=== PATIENT | female | born 1945 | race Caucasian/White ===

== ENCOUNTER 2020-02-03 12:07 | Observation (INO) | payer MEDICARE, OTHER ==
[~2020-02-03] VITALS: Ht 170.2 cm; Wt 53.1 kg
[~2020-02-03 12:07] MED LIST: B-12500 MCG PO; BIOTIN2500 MCG PO; CALCITRATE200 MG PO; CALTRATE-600 W1 EAC1 PO; CELEXA40 MG PO; CRESTOR10 MG PO; CURAMED PO; LEXAPRO10 MG PO; NEXIUM40 M1 PO; TRAMADOL HCL100 MG PO
--- OUTSIDE RECORDS SUMMARY | 2020-02-03 15:26 | XMS REPORT | Continuity of Care Document ---
Author Author Michael Myndnet MARNIE Erazo [employer] Address Unknown Phone Unavailable Care Team [facility]iders [facility] Associate Name Role Phone [employer] Unavailable Un available Problems Problem Status Onset Date Classification Date Reported Comments Source XRAY Active 03/09/2019 [facility] DX: MALIGNANT NEOPLASM OF ANUS, UNSPECIF Active 03/04/2019 [facility] UNK Active 0 04/03/2018 [facility] C20 - MALIGNANT NEOPLASM OF RECTUM Active 03/31/2018 [facility] 174.5; BREAST CANCER OF LOWER-OUTER QUAD Active 07/23/2014 [facility] POST RADIATION TREATMENT/174.5=BREAST CA Active 01/22/2014 [facility] 611.72=BREAST LUMP IN FEMALE A ctive 06/25/2013 [facility] Backache (finding) Active Problem 03/19/2019 [facility] Cigarette smoker (finding) Act elisa Problem [facility] Depressive disorder (disorder) Active Problem [facility] Malignant tumor of lung (disorder) Active Problem Right [facility] 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 03/19/2019 [facility] Pulmonary emphysema (disorder) Active Problem [facility] MALIGNANT NEOPLASM OF ANUS, UNSPECIFIED Active [facility] Medications Medication Details Route Status Patient Instructions Ordering Provider Order Date Source Oxycodone Hydrochloride 5 MG Oral Tablet 5 mg, 1 tab, Route: PO, ONCE, Dosing Weight 60.682, kg, PRN Pain Score 4-6, Start date: 04/11/18 10:10:00 CDT Inactive 04/11/2018 [facility] Fentanyl 50 microgram, Route: IVP, Q5Min, Dosing Weight 60.682, kg, PRN Pain Score 7-10, Priority: Routine, Start date: 04/11/18 9:15:00 CDT, Duration: 2 doses or times, Stop date: Limited # of times Inactive 04/11/2018 [facility] Flumazenil 0.2 mg, Route: IVP, PRN, Dosing Weight 60.682, kg, PRN Benzodiazepine Reversal, Initial dose, Start date: 04/11/18 9:15:00 CDT, Duration: 30 day, Stop date: 05/11/18 9:14:00 CDT Inactive 04/11/2018 [facility] Acetaminophen 1,000 mg, Route: IV, ONCE, Dosing Weight 60.682, kg, PRN Pain Score 1-3, Start date: 04/11/18 9:15:00 CDT Inactive 04/11/2018 [facility] esmolol 10 mg, Route: IVP, Q5M in, Dosing Weight 60.682, kg, PRN Other -See Comment, Start date: 04/11/18 9:15:00 CDT, Duration: 5 doses or times, Stop date: Limited # of times Inactive 04/11/2018 [facility] Labetalol 10 mg, Route: IVP, Q 5Min, Dosing Weight 60.682, kg, PRN Elevated BP, Start date: 04/11/18 9:15:00 CDT, Duration: 5 doses or times, Stop date: Limited # of times Inactive 04/11/2018 [facility] Hydralazine 10 mg, Route: IVP, Q20Min, Dosing Weight 60.682, kg, PRN Elevated BP, Start date: 04/11/18 9:15:00 CDT, Duration: 2 doses or times, Stop date: Limited # of times Inactive 04/11/2018 [facility] Promethazine 6.25 mg, Route: I VPB, ONCE, Dosing Weight 60.682, kg, PRN Nausea & Vomiting, Start date: 04/11/18 9:15:00 CDT Inactive 04/11/2018 [facility] Ondansetron 4 mg, Route: IVP, ONCE, Dosing Weight 60.682, kg, PRN Nausea & Vomiting, Start date: 04/11/18 9:15:00 CDT Inactive 04/11/2018 [facility] Meperidine 12.5 mg, Route: IVP , Q30Min, Dosing Weight 60.682, kg, PRN Other -See Comment, For shivering, Start date: 04/11/18 9:15:00 CDT, Duration: 2 doses or times, Stop date: Limited # of times Inactive 04/11/2018 [facility] Naloxone 0.4 mg, Route: IVP, Q 2MIN, Dosing Weight 60.682, kg, PRN Narcotic Reversal, Start date: 04/11/18 9:15:00 CDT, Duration: 8 doses or times, Stop date: Limited # of times Inactive 04/11/2018 [facility] Calcium Chloride 0.0014 MEQ/ML / Potassi um Chloride 0.004 MEQ/ML / Sodium Chloride 0.103 MEQ/ML / Sodium Lactate 0.028 MEQ/ML Injectable Solution 1,000 mL, Rate: 125 ml/hr, Infuse over: 8 hr, Route: IV, Dosing Weight 60.682 kg, Total Volume: 1,000, Start date: 04/11/18 9:15:00 CDT, Duration: 30 day, Stop date: 05/11/18 9:14:00 CDT, 1.7, m2 Inactive 04/11/2018 [facility] Acetaminophen 300 MG / Codeine Phosphate 30 MG Oral Tablet [Tylenol with Codeine #3] 1 - 2 tab, PO, Q4H, PRN Pain, X 3 day, # 20 tab, 0 Refill(s) Active 04/11/2018 [facility] lidocaine (ANES) Route: IV, Dr ug form: INJ, ONCE, Stop date: 04/11/18 8:56:00 CDT Inactive 04/11/2018 [facility] propofol (ANES) Route: IV, Agapito g form: INJ, ONCE, Stop date: 04/11/18 8:56:00 CDT Inactive 04/11/2018 [facility] fentaNYL (ANES) Route: IV, Agapito g form: INJ, ONCE, Stop date: 04/11/18 8:56:00 CDT Inactive 04/11/2018 [facility] ePHEDrine (ANES) Route: IV, Dr ug form: INJ, ONCE, Stop date: 04/11/18 8:56:00 CDT Inactive 04/11/2018 [facility] famotidine (ANES) Route: IV, D rug form: INJ, ONCE, Stop date: 04/11/18 8:56:00 CDT Inactive 04/11/2018 [facility] dexamethasone (ANES) Route: IV , Drug form: INJ, ONCE, Stop date: 04/11/18 8:56:00 CDT Inactive 04/11/2018 [facility] midazolam (ANES) Route: IV, Dr lance form: SOLN, ONCE, Stop date: 04/11/18 8:51:00 CDT Inactive 04/11/2018 [facility] Albuterol 0.833 MG/ML / Ipratropium Brom nancy 0.167 MG/ML Inhalant Solution 3 mL, Route: NEB, Dosing Weight 60.682, kg, ONCE, STAT, Start date: 04/11/18 8:46:00 CDT, Stop date: 04/11/18 8:46:00 CDT Inactive 04/11/2018 [facility] Calcium Chloride 0.0014 MEQ/ML / Potassi um Chloride 0.004 MEQ/ML / Sodium Chloride 0.103 MEQ/ML / Sodium Lactate 0.028 MEQ/ML Injectable Solution 1,000 mL, Rate: 25 ml/hr, Infuse over: 4 0 hr, Route: IV, Dosing Weight 60.682 kg, Total Volume: 1,000, Start date: 04/11/18 8:46:00 CDT, Duration: 30 day, Stop date: 05/11/18 8:45:00 CDT, 1.7, m2 Inactive 04/11/2018 [facility] ceFAZolin (ANES) 1000 mg Route : IV, Drug form: INJ, Start date: 04/11/18 8:16:00 CDT, Stop date: 04/11/18 9:16:00 CDT Inactive 04/11/2018 [facility] Lactated Ringers Injection IV (ANES) 1000 mL Route: IV, Total Volume: 1,000, Start date: 04/11/18 8:04:00 CDT, Stop date: 04/11/18 9:04:00 CDT Inactive 04/11/2018 [facility] Vitamin B Complex oral tablet 1 tab, PO, Daily, # 100 tab, 0 Refill(s) Active 04/04/2018 [facility] biotin 1000 mcg oral tablet 1, 000 microgram = 1 tab, PO, Daily, # 30 tab, 0 Refill(s) Active 04/04/2018 [facility] Airborne Everyday 1 tab, PO, B ID, 0 Refill(s) Active 04/04/2018 [facility] Glucosamine Chondroitin 3 cap, PO, Daily, 0 Refill(s) Active 04/04/2018 [facility] Esomeprazole 40 MG Enteric Coated Capsule [Nexium] 40 mg = 1 cap, PO, Daily, # 30 cap, 0 Refill(s) Active 04/04/2018 [facility] Rosuvastatin calcium 5 MG Oral Tablet [Crestor] 5 mg = 1 tab, PO, Bedtime, # 30 tab, 0 Refill(s) Active 04/04/2018 [facility] escitalopram 10 mg oral tablet 10 mg = 1 tab, PO, Daily, # 30 tab, 0 Refill(s) Active 04/04/2018 [facility] Allergies, Adverse Reactions, Alerts Substance Category Reaction Severity Reaction type Status Date Reported Comments Source No Known Medication Allergies Assertion Drug aller gy [facility] Immunizations No Data Provided for This Section Results No Data Provided for This Section Pathology Reports No Data Provided for This Section Diagnostic Reports Report Value Date Source PET CT Colorectal CA restaging PET CT Colorectal CA restaging Age: 73 years /o Female Clinical Indication: - C21.0 Malignant neoplasm of anus, unspecified; Comparison: None PET CT TECHNIQUE: Positron emission tomography imaging is performed 50 minutes after left antecubital intravenous administration of 15.9 mCi of F-18 labeled FDG, from the skull base to the mid thigh region. PET images were reviewed in the axial, coronal and sagittal orthogonal projections. Non-contrast enhanced CT imaging was for performed for attenuation correction, localization and limited diagnostic purposes. Serum glucose: 103 mg/dL. Dose: The total CT exam DLP is 321.09 mGy-cm. CTDIvol= 3.49 mGy. FINDINGS: NECK: There are no foci of abnormal metabolic activity. CHEST: There is a mass in the posterior medial infrahilar region of the right lower lung which exhibits eccentric increased FDG uptake near the medial margin. The SUV max = 6.5. The mass measures approximately 2.8 cm in diameter (slice 117-126). Some nonenhancing platelike scarring is present in the lateral aspect of the right upper lobe posteriorly (slice 112). ABDOMEN: There are no foci of abnormal metabolic activity. PELVIS: There are no foci of abnormal soft tissue metabolic activity. BONES: Mild increased uptake is present in the L5 vertebral body where there is a mild superior endplate depression. Findings suspicious for recent compression injury. Older compression deformities are present involving the superior endplate of T12. At the T10-T11 disc interval there is advanced degenerative change with sclerosis which appears chronic. Sclerotic change in the left lateral aspect of the sacrum may be due to healing from previous fracture. Physiologic F-18 labeled FDG distribution is noted in the brain, heart, liver, spleen, gastrointestinal and genitourinary tracts. IMPRESSION: 1. Region of increased FDG uptake and ab normal soft tissue density in the posterior medial aspect of the right lower lobe, just below the right hilum. Differential considerations include metastatic or primary neoplasm or possibly pneumonia. 2. No evidence of abnormal soft tissue a ctivity in the pelvis. 3. Mild increased activity in the L5 andra tebral body may be associated with recent superior endplate compression deformity. This may be due to osteoporosis. Metastatic disease possible, but less likely. 4. Additional chronic degenerative espinoza es near the thoracolumbar junction as described. Healing left sacral insufficiency fracture. 5. Otherwise negative PET computed tomog magaly scan. SL: [id number] 03/17/2019 [facility] 3 views DX CLINICAL IND ICATION: - M54.9 Dorsalgia, unspecified low back pain. COMPARISON: MRI dated 12/17/2018. FINDINGS: The AP pelvis radiograph shows no acute fractures or dislocations of the pelvis. Previously seen left sacral insufficiency fracture demonstrates surrounding sclerosis suggestive of healing. Mild degenerative change of the hips and SI joints is noted. There are degenerative changes in lumbar spine. Areas of T2 hyperintensity throughout the pelvic bones on the previous MRI are not well- demonstrated on this study. If there is further concern, recommend follow-up MRI or bone scan for complete assessment. IMPRESSION: Healing left sacral insufficiency fracture. No acute fracture or dislocation. SL: EUN 03/09/2019 [facility] Pelvis w/wo contrast MRI Clini ginger Indication: - C20 Malignant neoplasm of rectum. Chemoradiation completed August 2018 Comparison: 03/31/2018 MRI pelvis TECHNIQUE: Multiplanar, multisequence acquisition of the pelvis without and with intravenous contrast as per rectal cancer protocol including high resolution, T2-weighted sequences oriented to the long axis of the rectum. Contrast: 10 mL of Dotarem intravenous Magnet: 3T Overall image quality: Adequate FINDINGS: There is significant interval treatment response. At the previous site of tumor approximately 4 cm from the anal verge beginning just above the puborectalis sling, there is mild wall thickening of the posterior wall of the rectum extending approximately 5 cm cranial caudal. The wall thickening measures 5 -- 6 mm in thickness and is T2 hypointense suggesting fibrotic, scar tissue. Previously the tumor was of intermediate signal intensity on T2-weighted imaging. No residual intermediate signal intensity tumor is visible. No suspicious restricted diffusion. Hypointense signal of treated tumor extends beyond the wall of the rectum to abut the mesorectal fascia and appears tethered to the mesorectal fascia at the 6 to 8 o'clock position at the level of the levator musculature without definitive muscular invasion. No residual suspicious mesorectal lymph nodes. No suspicious extramesorectal lymph nodes. There are posttreatment changes with edema in the pelvis. There is edema within the left sacral ala. TUMOR LOCATION: i) Tumor Location (from anal verge): Low 0- 5.0 cm ii) Anal verge to distal tumor margin: 4 cm iii) Tumor at or below puborectalis sling: Yes iv) Distance of lowest extent of tumor from top of anal sphincter: 0 cm v) Relationship to the anterior peritoneal reflection: Below vi) Craniocaudal length: 5 cm vii) Clock face of tumor: Predominantly posteriorly at the 5 to 9 o'clock position with a smaller component extending to the 3 o'clock position near the superior extent viii) Morphology: Semi-annular ix) Mucinous: No IMPRESSION: 1. Significant treatment response. The tumor has significantly decreased in size and is now markedly T2 hypointense suggestive of fibrosis. No appreciable residual T2 intermediate intensity tumor signal to suggest macroscopic residual viable tumor by imaging criteria. Extramural extension of fibrotic appearing tissue to abut the mesorectal fascia on the right with tethering to the CRM. 2. Left sacral insufficiency fracture NOTE: Small nests of residual viable tumor within fibrotic change may be invisible on MRI. If not surgically excised recommend close follow up with physical exam and surveillance imaging. 12/17/2018 [facility] Chest 1 v for Placement DX Por table chest: A left jugular Port-A-Cath has been placed with the tip in the mid SVC. There is no evidence of pneumothorax. The cardiac silhouette is normal in size without pulmonary venous congestion. The aorta is ectatic and tortuous with mild calcification in the arch. There are mild nonspecific interstitial changes in the lungs. There is hyperlucency over the right upper lobe consistent with emp hysematous changes. The lungs and pleural spaces are otherwise clear. Bone infarct in the proximal right humeral shaft is noted without acute osseous abnormalities. [id number] 04/11/2018 [facility] Pelvis w/wo contrast MRI EXAM: MRI pelvis, rectum HISTORY: Malignant neoplasm of the rectum COMPARISON: None TECHNIQUE: Multiplanar, multisequence acquisition of the pelvis without and with intravenous contrast per rectal cancer protocol. Contrast: 12 mL of Dotarem intravenous FINDINGS: Overall image quality: Adequate 1. PRIMARY TUMOR: LOCATION: Distance to the anal verge: Approximately 7 cm Distance to the top of sphincter complex/anorectal junction: Approximately 3 cm Relationship to anterior peritoneal reflection: The reflection appears clear; the tumor is posterior to the reflection Craniocaudal length: Approximately 6 cm MORPHOLOGY and TUMOR CHARACTERISTICS: Bulky solid exophytic mass with some necrotic foci extending posteriorly from the rectum at approximately 3-10 o'clock. 2. T STAGE: Extramural depth of invasion: Tumor abuts the mesorectal fascia at approximately the 6-9 o'clock positions. MR-T category: T3 MRF+ Structures with possible invasion: : None Pelvic sidewall: None Pelvic floor: None Sacrum: None Vessels: Tumor encases small vessels in the right posterolateral mesorectum. Nerves: Indeterminate FOR LOW RECTAL TUMORS: Involvement of anal sphincters: No 3. EXTRAMURAL VENOUS INVASION (EMVI): Po ssible vascular encasement posteriorly 4. CIRCUMFERENTIAL RESECTION MARGIN: [Fo r T3 Tumor Only] Shortest distance of tumor to MRF or anticipated CRM: Tumor abuts and may infiltrate the MRF. Separate tumor deposit, suspicious lymph node or EMVI threatening (< 2 mm) or invading (<1 mm) the MRF): 6 mm lymph node at 5-6 o'clock, axial T2 image 32 is approximately 2 mm from the MRF. Extramural depth of invasion at this level: cm. Any tumor spiculations closer to the MRF?: Any other component of the tumor closer to the MRF?: Shortest distance of any suspicious mesorectal lymph node/tumor deposit to MRF: cm Location of lymph node/deposit closest to MRF: 5. TME [Superior Rectal \T\ Mesorectal O nly] LYMPH NODES AND TUMOR DEPOSITS: as above; several small lymph nodes in the mesorectal fascia at the 3-7 o'clock position are nonspecific LETY NODE PRESENT/ABSENT: Not seen If absent; Most superior suspicious lymph node/deposit is located: Mesorectum on the left at 3 o'clock 6. EXTRA-TME LYMPH NODES [AJCC 7thed: Lo coregional: internal iliac, obturator. Non- locoregional (M1): external iliac, common iliac, retroperitoneal, inguinal] Any suspicious extra-TME/ pelvic sidewall nodes? No 7. OTHER: Hysterectomy. IMPRESSION: Approximately 6 cm exophytic mass posterior rectum approximately 7 cm from the anal verge abuts or infiltrates the circumferential resection margin and encases vessels, MR Stage T3 MRF+, N1. The anal sphincters appear intact. SL: [id number] 03/31/2018 [facility] Digital Mammo DX Uni MA - DIGI ANIBAL MAMMO DX UNI MA/R UNILATERAL RIGHT DIGITAL DIAGNOSTIC MAMMOGRAM WITH CAD: 02/11/2014 CLINICAL: 6 Mo Follow Up right breast CA/DCIS s/p XRT lumpectomy 06/2013. Current study was evaluated with a Computer Aided Detection (CAD) system. Comparison is made to exams dated: 06/10/2013 mammogram, 05/21/2013 mammogram - [facility], 07/09/2013 ultrasound biopsy - [facility] and 06/10/2013 ultrasound - [facility]. There are scattered fibroglandular densities in the right breast. The patient is status post lumpectomy right breast. There are post operative and radiation changes in the right breast. There are benign vascular calcifications and calcifications in the right breast. No significant masses, calcifications, or other findings are seen in the breast. IMPRESSION: BENIGN The patient is status post lumpectomy right breast. There is no mammographic evidence of malignancy. A follow-up mammogram in 6 months is recommended to demonstrate stability. SUMMARY: A follow-up bilateral diagnostic mammogram with possible ultrasound in 6 months is recommended to demonstrate stability given the patient's history of prior lumpectomy. The patient will be due for her annual exam at that time. Pankaj stevens/zeyad:02/11/2014 11:51:25 [employer] Loan Underwriter: Jayda Triana, [facility] This exam was dictated and interpreted by [id number] for [facility] Breast [place]. letter sent: Normal exam Mammogram BI-RADS: 2 Benign 02/11/2014 [facility] Breast biopsy US guided - ZEENAT ST BIOPSY US GUIDED/R ULTRASOUND GUIDED BIOPSY RIGHT BREAST WITH MARKING DEVICE INSERTED AND POST DIGITAL MAMMOGRAPHIC AND ULTRASOUND IMAGIN07/09/2013 CLINICAL: Mass. PATIENT CONSENT: Oral and written informed consent was obtained. Risks, benefits, and alternatives were discussed with the patient. Risks include but are not limited to pain, infection, bleeding, incomplete procedure, repeat procedure, pneumothorax, damage to surrounding tissues, and allergic reaction. The patient understands the plan and wishes to proceed. A time out was performed immediately prior to the procedure. Correlation is made to exams dated: 06/10/2013 ultrasound, 06/10/2013 mammogram and 05/21/2013 mammogram - [facility]. An ultrasound guided biopsy using real-time ultrasound was performed for the concerning 4 mm circumscribed oval mass located in the right breast at 6 o'clock posterior depth 3 cm from the nipple. This was described on the previous mammography and ultrasound reports. The skin was prepped in the usual manner. 10 ccs of 1% lidocaine was administered during the procedure. A skin martin was made in the breast. The abnormality was approached from the medial aspect. A 14 gauge biopsy needle was placed adjacent to the abnormality through an introducer device under ultrasound guidance. Once the needle was documented to be in the correct location, three cores were obtained using an [employer] automated firing device. A Gel Brad UltraCor S shaped clip was inserted into the biopsy cavity. A skin adhesive and a sterile dressing were applied to the access site. Post procedure digital mammographic and ultrasound imaging demonstrates the clip at the targeted area and partial removal of the abnormality. The specimens were sent to the laboratory for pathological analysis. IMPRESSION: ULTRASOUND GUIDED BIOPSY HIGH RISK BENIGN Ultrasound guided biopsy of the 4 mm mass in the right breast at 6 o'clock posterior depth 3 cm from the nipple was successful with no apparent post procedure complications. Pathology indicates high risk finding - 'Atypical papillary proliferation. 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 Invasive papillary carcinoma cannot be excluded in view of the focally absent myoepithelial layer in one distorted area. Excisional biopsy is recommended for definitive classification'. Pathology results are concordant with imaging findings. A surgical consult and a surgical excision are recommended. The physician was notified of the critical findings at 1120 hours on 07/13/13. Pankaj stevens/:07/13/2013 11:26:07 Mortgage Or Loan Underwriter: Mary Lindsey, [facility] This exam was dictated and interpreted by [id number] at [facility], SL 13. 07/09/2013 [facility] Consultation Notes No Data Provided for This Section Discharge Summaries No Data Provided for This Section History and Physicals No Data Provided for This Section Vital Signs Vital Sign Value Date Comments Source Systolic (mm Hg) 106 04/11/2018 [facility] Diastolic (mm Hg) 49 04/11/2018 [facility] Respitory Rate 18 04/11/2018 [facility] Systolic (mm Hg) 114 04/11/2018 [facility] Diastolic (mm Hg) 66 04/11/2018 [facility] Respitory Rate 16 04/11/2018 [facility] Systolic (mm Hg) 115 04/11/2018 [facility] Diastolic (mm Hg) 93 04/11/2018 [facility] Respitory Rate 15 04/11/2018 [facility] Heart Rate 58 04/11/2018 [facility] Heart Rate 73 04/04/2018 [facility] Temperature Oral (F) 98.5 F 04/04/2018 [facility] BMI Calculated 20.95 04/04/2018 [facility] Height 170.18 cm 04/04/2018 [facility] Weight 60.682 04/04/2018 [facility] Encounters Location Location Details Encounter Type Encounter Number Reason For Visit Attending Provider ADM Date DC Date Status Source [facility] Outpatient [id number] BONIFACIO BESS 07/09/2013 07/09/2013 Discharged [facility] Outpatient [id number] Atilio Bell 02/11/2014 02/12/2014 [facility] Outpatient [id number] Jarrett Theodore 08/16/2014 08/17/2014 [facility] Day Surgery [id number] Krystyna Carbajal 04/11/2018 04/11/2018 [facility] Outpatient [id number] Krystyna Merazick 03/09/2019 03/10/2019 [facility] Outpatient [id number] Krystyna Carbajal 03/17/2019 03/18/2019 [facility] Procedures Procedure Code Date Perfomer Comments Source Colonoscopy and biopsy of colon [id number] [facility] Lumpectomy of breast [id number] [facility] Partial hysterectomy [id number] [facility] Assessment and Plan No Data Provided for This Section Plan of Care No Data Provided for This Section Social History Social History Date Source Social History TypeResponse Alcohol Past Smoking Status Current every day smoker; Type: Cigarettes; Lives with someone who smokes; Cigarette Smoking Last 365 Days Yes; Reg Smoking Cessation Counseling No entered on: 04/11/18 04/04/2018 [facility] Family History No Data Provided for This Section Advance Directives No Data Provided for This Section Functional Status No Data Provided for This Section
--- OUTSIDE RECORDS SUMMARY | 2020-02-03 15:26 | XMS REPORT | Summary of Care ---
Author Organization Unknown Address Unknown Phone Unavailable Encounter HQ Encntr_alias(ALESHA) [id number] Date(s): 02/11/14 - 02/11/14 [facility] [address] Discharge Disposition: Home Physician Attending: Atilio Bell MD Physician_Referring: Atilio Bell MD Reason for Visit POST RADIATION TREATMENT/174.5=BREAST CANCER OF LOWER-O Problem List No data available for this section Allergies, Adverse Reactions, Alerts No data available for this section Medications No data available for this section Medications Administered During Your Visit No data available for this section Immunizations No data available for this section
--- OUTSIDE RECORDS SUMMARY | 2020-02-03 15:26 | XMS REPORT | Summary of Care ---
Author Author [facility] Organization [facility] Address Unknown Phone Unavailable Encounter HQ Jeramy(FIN) [id number] Date(s): 03/17/19 - 03/17/19 [facility] [address] [place] [address]- Discharge Disposition: Home or Self Care Attending Physician: Krystyna Carbajal V Referring Physician: Krystyna Carbajal V Vital Signs No data available for this section Problem List Condition Effective Dates Status Health Status Informan t Acute bilateral back Active pain(Confirmed) Cigarette Active smoker(Confirmed) Depression(Confirmed Active ) Cancer of Active lung(Confirmed)1 Cancer of colon with Active rectum(Confirmed) Emphysema of Active lung(Confirmed) 1Right Allergies, Adverse Reactions, Alerts No Known Medication Allergies Medications No data available for this section Results No data available for this section Immunizations No data available for this section Procedures Procedure Date Related Diagnosis Body Site Status Colonoscopy and biopsy of colon Completed Lumpectomy of breast Completed Partial hysterectomy Completed Social History Social History Type Response Alcohol Past Smoking Status Current every day smoker; T ype: Cigarettes; Lives with someone who smokes; Cigarette Smoking Last 365 Days Yes; Re g Smoking Cessation Counseling No entered on: 04/11/18 Assessment and Plan No data available for this section
--- OUTSIDE RECORDS SUMMARY | 2020-02-03 15:26 | XMS REPORT | Summary of Care ---
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
--- OUTSIDE RECORDS SUMMARY | 2020-02-03 15:26 | XMS REPORT | Summary of Care ---
Author Author [facility] Organization [facility] Address Unknown Phone Unavailable Encounter HQ Jeramy(ALESHA) [id number] Date(s): 03/09/19 - 03/09/19 [facility] [address] [place] [address]- [phone] Discharge Disposition: Home or Self Care Attending Physician: Krystyna Carbajal V Vital Signs No [...]
--- OUTSIDE RECORDS SUMMARY | 2020-02-03 15:27 | XMS REPORT ---
Author Author [facility] Organization [facility] Address Unknown Phone Unavailable Care Team Providers Care Dye Colorist Formulator Name Role Phone Unavailable Unavailable Problems This patient has no known problems. Allergies, Adverse Reactions, Alerts This patient has no known allergies or adverse reactions. Medications This patient has no known medications. Encounters Start Date/Time End Date/Time Encounter Type Admission Type [facility] Care Department Encounter ID 2019-03-17 10:40:00 2019-03-17 10:40:00 Outpatient [facility] [id number] 2019-03-09 10:54:00 2019-03-09 10:54:00 Outpatient [facility] SE [id number]
[2020-02-03 15:45] VITALS: BP 97/61
--- NOTE | 2020-02-03 15:45 | NUR ---
Receive patient direct admit to room 202. AOx4. O2 at 2.5 L via NC. Skin intact. Call light in reach.
[2020-02-03 16:05] VITALS: BP 97/61
[2020-02-03] MEDS ORDERED: SODIUM CHLORIDE 0.9% 250ML 250 ML IV ONE (16:30)
[2020-02-03 18:06] LABS: BASOPHILS % 0.2 % (0.0-1.0); EOSINOPHILS % 0.4 % (0.0-6.0); LYMPHOCYTES # (AUTO) 0.4 (1.0-3.2); LYMPHOCYTES % 7.8 % (18.0-39.1); MEAN CORPUSCULAR HEMOGLOBIN 24.1 pg (28-32); MEAN CORPUSCULAR HGB CONC 26.8 g/dL (31-35); MEAN CORPUSCULAR VOLUME 89.9 fL (81-99); MONOCYTES # (AUTO) 0.4 (0.2-0.8); MONOCYTES % 8.4 % (4.4-11.3); NEUTROPHILS # (AUTO) 4.4 (2.1-6.9); NEUTROPHILS % 82.8 % (38.7-80.0); PLATELET COUNT 134 x10e3/uL (140-360); RED BLOOD COUNT 1.99 x10e6/uL (3.6-5.1); RED CELL DISTRIBUTION WIDTH 19.9 % (11.7-14.4)
[2020-02-03 18:13] LABS: HEMATOCRIT 17.9 % (34.2-44.1); HEMOGLOBIN 4.8 g/dL (12.0-16.0)
--- NOTE | 2020-02-03 18:13 | Diagnostic Imaging Report ---
EXAMINATION: CHEST 2 VIEWS INDICATION: ^SOB ^[id number] ^[id number] COMPARISON: Report of chest x-ray performed 04/02/2017. Images are not available for comparison. FINDINGS: PA and lateral views TUBES and LINES: MediPort catheter in the left chest wall. Catheter tip is in the SVC. LUNGS: Diffuse hyperinflation consistent with COPD/emphysema. Large airspace posterior to the mediastinum just to the right of midline. There is scarring along the minor fissure. Reticulonodular opacities in the inferior aspect of the left lung. PLEURA: No pleural effusion or pneumothorax. HEART AND MEDIASTINUM: The heart is top normal in size. The aorta is tortuous with calcifications throughout. BONES AND SOFT TISSUES: Diffuse demineralization. Degenerative changes of the thoracic spine with mildly pulsatile scoliosis of the lower thoracic spine. Sclerotic intramedullary lesion in the proximal right humerus may represent bone infarct. Soft tissues are unremarkable. UPPER ABDOMEN: Unremarkable. IMPRESSION: 1. Large mass or infiltrate in the right lower lobe. This may also represent atelectasis from an obstructing bronchial tumor. 2. Reticulonodular opacities in the inferior aspect the left lung may be due to pneumonia or scarring. 3. COPD/emphysema. Signed by: Dr. Baljit Baeza MD on 02/03/2020 6:10 PM
[2020-02-03 18:19] LABS: ALANINE AMINOTRANSFERASE 14 IU/L (0-55); ALBUMIN 1.5 g/dL (3.5-5.0); ALBUMIN/GLOBULIN RATIO 0.3 (0.8-2.0); ALKALINE PHOSPHATASE 193 IU/L (40-150); ANION GAP 16.9 mmol/L (8-16); BLOOD UREA NITROGEN 16 mg/dL (7-26); BUN/CREATININE RATIO 27 (6-25); CALCIUM 8.7 mg/dL (8.4-10.2); CARBON DIOXIDE 24 mmol/L (22-29); CHLORIDE 94 mmol/L (98-107); CREATININE, SERUM 0.59 mg/dL (0.57-1.11); EST GLOMERULAR FILTRATION RATE > 60 ML/MIN (60-); GLUCOSE 92 mg/dL (74-118); POTASSIUM 3.9 mmol/L (3.5-5.1); SODIUM 131 mmol/L (136-145)
[2020-02-03 18:26] LABS: INR 1.18; PROTHROMBIN TIME 15.8 seconds (11.9-14.5)
[2020-02-03] MEDS ORDERED: PREDNISONE10 MG PO (18:34)
[2020-02-03] MEDS ORDERED: VIRTUSSIN AC L118 ML PO (18:34)
[2020-02-03] MEDS ORDERED: NEXIUM40 MG PO (18:34)
[2020-02-03 19:09] LABS: BILIRUBIN,URINE NEGATIVE (NEGATIVE); CLARITY,URINE SL CLOUDY (CLEAR); COLOR,URINE YELLOW (YELLOW); KETONES,URINE NEGATIVE (NEGATIVE); LEUKOCYTE ESTERASE ,URINE NEGATIVE (NEGATIVE); NITRITE,URINE NEGATIVE (NEGATIVE); PROTEIN,URINE DIPSTICK NEGATIVE (NEGATIVE); URINE UROBILINOGEN 0.2 mg/dL (0.2 - 1)
--- NOTE | 2020-02-03 19:10 | NUR ---
Report given to rigging up worker. Respiration even and unlabored without SOB. Call light in reach.
--- NOTE | 2020-02-03 19:20 | NUR ---
report received from kyle BALLESTEROS, PATIENT DIRECT ADMIT, AOX4, HERE FOR GENERALIZED WEAKNESS, CURRENT HBG LEVEL 4.8, BSSR COMPLETED, PATIENT INTRODUCED TO ONCOMING STAFF, BED ALARM ON FOR SAFETY USES WALKER FOR BRP'S, STANBY ASSISTANCE, PEDNING BLOOD TRANSFUSION PER MD ORDER, AWAITING CALL FROM BLOOD BANK
[2020-02-03 19:31] LABS: BACTERIA,URINE FEW /HPF; EPITHELIAL CELLS,URINE MODERATE /LPF
--- NOTE | 2020-02-03 19:41 | NUR ---
LAB CALLED TO INQUIRE ABOUT PRBC UNITS, NOT READY WILL CALL WHEN READY, PATIENT PLACED ON TELEMETRY FOR SAFETY
--- NOTE | 2020-02-03 19:43 | NUR ---
CONSENT VERIFIED IN CHART
[2020-02-03 20:00] VITALS: BP 111/54
[2020-02-03 20:04] LABS: FERRITIN 1088.78 ng/mL (4.63-204.00)
--- NOTE | 2020-02-03 20:15 | NUR ---
first unit of PRBC pickup from blood bank, verified prior to leaving lab per protocol, vitals taken prior to transfusion, patient verified with two nurses, this nurse and marlo RN, patient afebrile, VSS, blood transfusion started using left AC#20g, site C/D/i no s/sx of infiltration noted
--- NOTE | 2020-02-03 20:21 | Consultation ---
DATE OF CONSULTATION: Pulmonary Critical Care Consultation CHIEF COMPLAINT: Fatigue and dyspnea along with a history of prior lung cancer. HISTORY OF PRESENT ILLNESS: The patient is a 74-year-old woman. She has a history of bronchogenic carcinoma. She completed radiation chemotherapy a year ago. According to Oncology, she has reached a maximum amount of allowable radiation. The patient reports worsening fatigue and dyspnea over the past several weeks. She does not note any fever. She has no cough. She denies any hematemesis or hematochezia. She came to the office several days ago and had routine blood work. Her blood count was low at 5.4. She also had an elevated creatinine of 2.15. She was subsequently admitted to the hospital. PAST SURGICAL HISTORY: 1. Prior CT-guided needle biopsy with subsequent pneumothorax 2 years ago. 2. Colonoscopy. PAST MEDICAL HISTORY: 1. Bronchogenic carcinoma. 2. Gastroesophageal reflux. SOCIAL HISTORY: The patient is not an active drinker. She was a prior smoker. FAMILY HISTORY: Family history is noncontributory. ALLERGIES: THERE ARE NO KNOWN DRUG ALLERGIES. REVIEW OF SYSTEMS: She denies any headache. She has no neck pain. There are no fevers. She has no chest pain. She does report dyspnea. She does not have any abdominal pain. She denies nausea or vomiting. She has no hematochezia. She denies any focal neurological abnormalities. PHYSICAL EXAMINATION: VITAL SIGNS: The blood pressure is 97/61 and the pulse is 96. O2 saturation is 96% on 2 L. HEENT: Shows no facial swelling or erythema. LYMPHATIC: Shows no submandibular, cervical, or supraclavicular adenopathy. CARDIAC: Reveals regular rate and rhythm with normal S1 and S2. There are no murmurs or rubs. LUNGS: Auscultation of lungs reveals clear breath sounds bilaterally. There is no wheezing. ABDOMEN: Soft and nontender. There is no rebound or guarding. EXTREMITIES: Shows no leg edema or calf tenderness. There is no cyanosis or clubbing. SKIN: Shows no rashes. NEUROLOGICAL: Shows no focal abnormalities. LABORATORY DATA: BUN to creatinine ratio is 16 to 0.59. The albumin is 1.5. The sodium is 131. The hemoglobin is 4.8 and the white blood cell count is 5.25. The platelet count is 134. RADIOGRAPHIC DATA: Chest x-ray shows infiltrate versus mass in the right lower lobe. There was some reticular nodular opacities in an inferior aspect of the left lung. IMPRESSION: 1. Anemia secondary to acute and chronic blood loss. 2. Bronchogenic carcinoma. 3. Right lower lobe atelectasis secondary to bronchogenic carcinoma. 4. Hyponatremia. 5. Thrombocytopenia. 6. Moderate protein-calorie malnutrition. PLAN: 1. Two units of packed RBCs with followup H and H. 2. CT scan of chest with IV contrast. 3. Oxygen as needed. 4. Further recommendations depending on the patient's CT results and response to transfusion. 5. Consider GI consultation. Hemal Marcial MD [facility]/SARYL /[id number]
[2020-02-03] MEDS ORDERED: SODIUM CHLORIDE 0.9% 50ML 50 ML ONE (21:08)
[2020-02-03] MEDS ORDERED: IOPAMIDOL 370 MG/ML 200 ML INFUS..BTL INJ ONE (21:08)
--- NOTE | 2020-02-03 22:08 | NUR ---
patient tolerating blood transfusion well, no reaction noted, skin warm dry, afebrile, VSS, IV site checked during infusion patent, C/D/I will continue to monitor
--- NOTE | 2020-02-03 23:03 | NUR ---
completion of first unit of PRBC , no reaction noted, second unit pending infusion
--- NOTE | 2020-02-03 23:25 | NUR ---
2nd unit of blood started iv site LFA #20g patent intact, no c/o pain at site, no leaking will continue to monitor vitals per protocol
[2020-02-04] VITALS (8 sets, daily range): BP systolic 108–128; BP diastolic 59–71
[2020-02-04] MEDS ORDERED: ACETAMINOPHEN 325 MG TAB PO PRN
[2020-02-04] MEDS ORDERED: ONDANSETRON HCL INJ 2MG/ML 2ML 2 MG/ML VIAL IV PRN
[2020-02-04] MEDS ORDERED: HYDROCODONE/APAP 5MG-325MG TAB PO PRN
[2020-02-04] MEDS ORDERED: ALBUTEROL/IPRATROPIUM 3 ML NEB NEB PRN
[2020-02-04] MEDS: GUAIFENESIN/CODEINE 10 ML CUP PO PRN ×2 (00:26→20:00)
--- NOTE | 2020-02-04 00:31 | NUR ---
CONTINUE TO TOLERATED IV BLOOD TRANSFUSION W/O REACTION, C/O PAIN, COUGH AND HEADACHE, PRN PAIN AND COUGH MEDICATION GIVEN
[2020-02-04 05:39] LABS: BASOPHILS % 0.2 % (0.0-1.0); EOSINOPHILS % 0.9 % (0.0-6.0); LYMPHOCYTES # (AUTO) 0.4 (1.0-3.2); LYMPHOCYTES % 9.7 % (18.0-39.1); MEAN CORPUSCULAR HGB CONC 31.3 g/dL (31-35); MEAN CORPUSCULAR VOLUME 86.1 fL (81-99); MONOCYTES # (AUTO) 0.4 (0.2-0.8); MONOCYTES % 9.3 % (4.4-11.3); NEUTROPHILS # (AUTO) 3.5 (2.1-6.9); NEUTROPHILS % 79.7 % (38.7-80.0); PLATELET COUNT 162 x10e3/uL (140-360); RED BLOOD COUNT 2.52 x10e6/uL (3.6-5.1); RED CELL DISTRIBUTION WIDTH 17.4 % (11.7-14.4)
[2020-02-04 05:45] LABS: ANION GAP 14.3 mmol/L (8-16); BLOOD UREA NITROGEN 16 mg/dL (7-26); BUN/CREATININE RATIO 27 (6-25); CALCIUM 8.6 mg/dL (8.4-10.2); CARBON DIOXIDE 25 mmol/L (22-29); CHLORIDE 95 mmol/L (98-107); EST GLOMERULAR FILTRATION RATE > 60 ML/MIN (60-); GLUCOSE 81 mg/dL (74-118); POTASSIUM 4.3 mmol/L (3.5-5.1); SODIUM 130 mmol/L (136-145)
[2020-02-04 05:53] LABS: HEMATOCRIT 21.7 % (34.2-44.1)
[2020-02-04 05:54] LABS: HEMOGLOBIN 6.8 g/dL (12.0-16.0)
[2020-02-04] MEDS: TRAMADOL HCL 50 MG TAB PO SCH ×3 (06:00→20:00)
--- NOTE | 2020-02-04 06:30 | NUR ---
lab called critical result crista 6.8MD Lee contacted with result via telephone
--- NOTE | 2020-02-04 06:32 | NUR ---
MD RUSSO CONTACTED VIA TELPHONE DIRECTLY, ADVISED OF PREVIOUS AND CURRENT HGB LEVEL 4.8 TO 6.8, NO ORDERS STATES "I WILL SEE THE PATIENT DURING ROUNDS"
--- NOTE | 2020-02-04 07:18 | Diagnostic Imaging Report ---
EXAM: CT CHEST, Abdomen , and Pelvis WITH contrast INDICATION: SEVERE ANEMIA/LUNG CANCER COMPARISON: Chest x-ray 02/03/2020. TECHNIQUE: Chest abdomen pelvis were scanned utilizing a multidetector helical scanner from the base of neck to the pubic symphysis after administration of IV contrast. Coronal and sagittal reformations were obtained. Routine protocol was performed. Scan was performed when during portal venous phase. IV CONTRAST: 100 mL of Isovue 370 ORAL CONTRAST: None COMPLICATIONS: None RADIATION DOSE: Total DLP: 325 mGy*cm Estimated effective dose: (DLP x 0.015 x size factor) mSv CTDIvol has been reviewed. It is below the limits set by the Radiation Protocol Committee (RPC). Dose modulation, iterative reconstruction, and/or weight based adjustment of the mA/kV was utilized to reduce the radiation dose to as low as reasonably achievable. FINDINGS: LINES and TUBES: Left chest wall, therapy port with left IJ central venous catheter, tip in the low SVC. . LUNGS/AIRWAYS: A 10 cm right lower lobe heterogeneous mass with causes near complete collapse of the right lower lobe. Heterogeneous groundglass and consolidative opacities in the super segment of the right lower lobe with microcystic changes. Severe pulmonary emphysema. PLEURA: CARDIOMEDIASTINUM: A few enlarged mediastinal and right hilar lymph nodes seen best on series 4, examples include: * 3.3 cm right infrahilar lymph node. * 3 cm subcarinal lymph node. * 1 cm left lower paratracheal lymph node. Right-sided cardiomegaly, particularly the right atrium. Mild main pulmonary artery dilation, 3 cm in diameter. The ascending aorta is within normal limits of diameter. Aortic valve calcifications. Triple vessel coronary artery calcifications. HEPATOBILIARY: A 4.6 cm heterogeneous hypodense right hepatic lesion. A few additional smaller hypodensities, including a 2.6 cm subcapsular hypodensity in hepatic segment 4B, which is fluid density. No biliary ductal dilation. GALLBLADDER: No radio-opaque stones or sludge. Mildly distended and mild wall thickening.. SPLEEN: No splenomegaly. PANCREAS: No focal masses or ductal dilatation. ADRENALS: No adrenal nodules KIDNEYS/URETERS: Kidneys enhance symmetrically. No hydronephrosis. No cystic or solid mass lesions. No stones. GI TRACT: No abnormal distention, wall thickening, or evidence of bowel obstruction. Moderate colonic stool burden. Appendix is normal. PELVIC ORGANS/BLADDER: Hysterectomy. No neck masses. Urinary bladder unremarkable. LYMPH NODES: No lymphadenopathy. VESSELS: There is moderate atherosclerotic disease in the aorta and major arterial branches. PERITONEUM / RETROPERITONEUM: No free air or fluid. BONES: Mild compression fracture of L5 vertebral body, possibly pathologic. Mild superior endplate compression deformity of T12 vertebral body. Degenerative changes. Osteoporosis. SOFT TISSUES: Unremarkable. IMPRESSION: 1. A 10 cm right lower lobe mass with near complete collapse of the right lower lobe. Metastatic right hilar, and lower mediastinal lymph nodes including a 1 cm left lower paratracheal lymph node. A 4.6 cm hepatic metastasis. Opacities in the superior segment of the right lower lobe are likely postobstructive pneumonia. 2. Severe pulmonary emphysema with findings of pulmonary hypertension and right-sided cardiomegaly. Triple vessel coronary artery calcific atherosclerotic disease. Aortic valve calcific disease.. 3. Mild compression fracture of L5 vertebral body, possibly pathologic. Mild superior endplate compression deformity of T12 vertebral body. Osteoporosis. 4. Moderate colonic stool burden, correlate for constipation. 5. Mildly distended gallbladder with mild wall thickening, correlate cholecystitis. Signed by: Yefri Meeks DO on 02/04/2020 7:15 AM
--- NOTE | 2020-02-04 07:28 | NUR ---
BSSR GIVEN TO ANGE RN, PATIENT AOX4, RESTING COMFORTABLY NO DISTRESS NOTED, SKIN WARM DRY, UP FOR BRP WITH STANBY ASSISTANCE AND WALKER, CALL LIGHT WITHIN REACH, ADVISED TO CALL PRIOR TO AMBULATING FOR SAFETY
[2020-02-04] MEDS: PANTOPRAZOLE SOD 40 MG TABEC PO SCH ×2 (08:11→08:12)
[2020-02-04] MEDS: ESCITALOPRAM OXALATE 10 MG TAB PO SCH (08:11)
[2020-02-04] MEDS ORDERED: FUROSEMIDE INJ 10 MG/ML 2 ML VIAL IV PRN (10:45)
[2020-02-04] MEDS ORDERED: ONDANSETRON HCL 4 MG ORAL DISINTEGRATING TAB PO PRN (11:30)
[2020-02-04] MEDS ORDERED: SODIUM CHLORIDE 0.9% 250ML 250 ML IV ONE (11:40)
[2020-02-04] MEDS ORDERED: ACETAMINOPHEN 325 MG TAB PO ONE (11:40)
--- NOTE | 2020-02-04 14:20 | NUR ---
Nutrition Intervention Note RD Recommendation(s) for Physician: - Continue Regular diet as tolerated - Recommend Ensure Enlive TID for adequacy - Recommend MVI with minerals once daily for adequacy Plan of Care: RD following, monitoring for tolerance and adequacy. ONS. Nutrition reason for involvement: Nutrition Risk Trigger RD Assessment 02/03: 74 YOF admitted for anemia and TAJ, evaluated today per MST 2 screen. Pt discussed during am MDR. MD at bedside at first attempted visit and pt out of room at time of second visit. Pt eating 75% of meals per chart, no documented GI distress. Noted pt underweight per current BMI and potentially malnourished, will address at follow up. RD to order Ensure supplement. Chart reviewed. Will continue to monitor. Principal Problems/Diagnoses: anemia, TAJ PMH: lung cancer with radiation, COPD, emphysema, GERD GI: soft, non-tender Skin: intact Labs: 02/03: Na 130, K 4.3, BUN 16, Cr 0.6, Gluc 81 Meds: protonix, norco, zofran, lasix Ht: 67 in Wt: 114.19 lb BMI: 17.19 kg/m2 IBW: 135 lb Malnutrition Evaluation (02/04/20) The patient does not meet criteria for a specified degree of malnutrition at this time. Will re-evaluate at follow-up as appropriate. Unable to complete assessment. Energy intake: JORGE Weight loss: JORGE Fat loss: unable to evaluate Muscle loss: unable to evaluate Supporting Evidence: Fluid accumulation: unable to evaluate Functional Status: unable to evaluate Nutrition Prescription (Diet Order): Regular Estimated Nutritional Needs: [id number] calories/day (30-35 kcal/kg CBW) 67-104 g protein/day (1.3-2 g pro/kg CBW) Diet Adequacy: Meeting calorie needs, Meeting protein needs Diet Tolerance: tolerating Diet Education Needs Assessment: Diet education not indicated; patient on regular diet. Nutrition Care Level: Moderate Nutrition Diagnosis: Increased nutrient needs (kcal, protein, vit/min) related to current BMI as evidenced by currently underweight. Goal: Patient will meet 75-100% of estimated needs by follow up Progress: N/A Interventions: -General healthful diet, Commercial beverage, Multivitamin/mineral supplement therapy, Collaboration with other providers Monitoring/Evaluation: -Total energy intake, Total protein intake, Liquid supplement, Weight change Signed: aTra Parikh RD, LD, [facility]
--- NOTE | 2020-02-04 17:10 | Progress Note ---
DATE: SUBJECTIVE: The patient received 2 units of packed red blood cells yesterday. Her hemoglobin is still 6.8 and she is awaiting additional packed red blood cells today. CT scan of the chest showed an enlarging right infrahilar mass and almost complete obstruction of the right lower lobe. The patient had some associated mediastinal adenopathy as well as a liver metastasis. PHYSICAL EXAMINATION: VITAL SIGNS: The patient is afebrile. The vital signs are stable. HEENT: Shows no facial swelling or erythema. CARDIAC: Reveals a regular rate and rhythm with normal S1 and S2. LUNGS: Auscultation of lungs shows decreased breath sounds at the bases. There is no wheezing. ABDOMEN: Soft, nontender. There is no rebound or guarding. EXTREMITIES: Show no leg edema or calf tenderness. There is no cyanosis or clubbing. SKIN: Shows no rashes. IMPRESSION: 1. Anemia secondary to acute and chronic blood loss. 2. Recurrent metastatic bronchogenic carcinoma. PLAN: 1. The patient should receive additional packed red blood cells. 2. The patient will need re-evaluation by Oncology. She will probably need a repeat biopsy with receptor analysis. She may be a candidate for immunotherapy or for salvage chemo. MD TERRANCE Ortega/BRYANT /[id number]
--- NOTE | 2020-02-04 18:48 | NUR ---
report received from kyle CASSIDY, REGAN ROUNDING COMPLETED, UPDATED ON PATIENT CARE PATIENT AWAKE ALERT NO DISTRESS
--- NOTE | 2020-02-04 19:18 | NUR ---
Bedside shift rounding complete, report given to oncoming nurse, pt stable at this time.
[2020-02-04] MEDS ORDERED: SODIUM CHLORIDE 0.9% 250ML 250 ML ONE (20:25)
--- NOTE | 2020-02-04 22:12 | NUR ---
MD RUSSO CONTACTED REGARDING BLOOD TRANSFUSION, ADVISED THAT PER LAB, 2ND UNIT WILL NOT BE READY UNTIL AM, PER MD RUSSO, PATIENT IS NOT TO BE DISCHARGED UNIT RECEIVE 2 UNIT OF BLOOD
--- NOTE | 2020-02-04 22:14 | NUR ---
LAB CONTACTED VIA TELEPHONE ABOUT 2ND UNIT OF BLOOD, PER PLASTIC MACHINE OPERATOR ABLE TO OBTAIN 2ND UNIT OF BLOOD, 2ND UNIT OF BLOOD READY
[2020-02-05] VITALS (7 sets, daily range): BP systolic 101–119; BP diastolic 50–69
[2020-02-05 05:23] LABS: BASOPHILS % 0.4 % (0.0-1.0); EOSINOPHILS # (AUTO) 0.1 (0.0-0.4); EOSINOPHILS % 2.1 % (0.0-6.0); HEMATOCRIT 30.4 % (34.2-44.1); HEMOGLOBIN 9.4 g/dL (12.0-16.0); LYMPHOCYTES # (AUTO) 0.5 (1.0-3.2); LYMPHOCYTES % 10.2 % (18.0-39.1); MEAN CORPUSCULAR HEMOGLOBIN 27.1 pg (28-32); MEAN CORPUSCULAR HGB CONC 30.9 g/dL (31-35); MEAN CORPUSCULAR VOLUME 87.6 fL (81-99); MONOCYTES # (AUTO) 0.5 (0.2-0.8); NEUTROPHILS # (AUTO) 3.6 (2.1-6.9); NEUTROPHILS % 76.7 % (38.7-80.0); PLATELET COUNT 151 x10e3/uL (140-360); RED BLOOD COUNT 3.47 x10e6/uL (3.6-5.1); RED CELL DISTRIBUTION WIDTH 17.2 % (11.7-14.4)
[2020-02-05] MEDS: TRAMADOL HCL 50 MG TAB PO SCH (07:31)
[2020-02-05] MEDS: ESCITALOPRAM OXALATE 10 MG TAB PO SCH (09:25)
--- NOTE | 2020-02-06 05:00 | Discharge Summary ---
FINAL DIAGNOSES: 1. Chronic anemia, hemoglobin of 4.8, hematocrit of 17.9, status post 4 units blood transfusion, hemoglobin is 9.4 and hematocrit of 30.4. 2. Hypothyroidism. 3. Lung cancer, stage IV. SUMMARY: The patient's baseline with lung cancer, is off all treatment. The patient has a 10 cm right lower lobe mass, near complete collapse of the right lower lobe, metastatic right hilar, mediastinal lymph node, 1 cm left lower paratracheal lymph node, severe pulmonary emphysema. A 4.6 cm hepatic metastasis opacity also in the superior segment of the right lower lobe. The patient has no symptoms of cough or fever. The patient has severe pulmonary emphysema as noted. She also has constipation. The patient is anemic. She had blood transfusion, 4 units of blood and she is stable and will discharge home. I discussed with the patient regarding palliative care and the patient will talk to her primary care physician, regarding hospice consultation. Discussed with the patient, explained the patient will go home today. Follow up as an outpatient for any further adjustment of her medication. MD INA Muniz/BRYANT /[id number]
== END 2020-02-05 12:56 | disposition home or self-care (01) ==
LOC: MED/SURG2 15:20
PROVIDERS: ADMIT Internal Medicine; ATTEND Internal Medicine
DX: D62 Acute posthemorrhagic anemia (principal); C34.31 Malignant neoplasm of lower lobe, right bronchus or lung; C77.1 Secondary and unspecified malignant neoplasm of intrathoracic lymph nodes; E87.1 Hypo-osmolality and hyponatremia; D69.6 Thrombocytopenia, unspecified; E44.0 Moderate protein-calorie malnutrition; E03.9 Hypothyroidism, unspecified; C78.7 Secondary malignant neoplasm of liver and intrahepatic bile duct
CPT/HCPCS: 36415 ×3; 36430; 71046; 71260; 74177; 80048; 80053; 81001; 82607 ×2; 82728; 82746; 83010; 83540; 84443; 84466; 85025 ×3; 85610; 85730; 86850; 86900; 86920; 87635; 93005; 96365; 96366; G0378 ×3; J7050; P9016 ×3; Q9967; S0164 ×2